=== PATIENT | female | born 1985 | race Caucasian/White ===

== ENCOUNTER → 2017-01-25 | Outpatient (CLI) | payer BC | LOC: MOB LAB 14:10 | PROVIDERS: ATTEND Nurse Practitioner Family | DX: E03.9 Hypothyroidism, unspecified (principal) | CPT/HCPCS: 36415; 84443 ==

== ENCOUNTER 2018-03-11 20:00 | Inpatient (IN) ==
[2018-03-11] MEDS ORDERED: ePHEDrine Inj 5 MG in Normal Saline Flush 1 ML IVP PRN (20:48)
[2018-03-11] MEDS ORDERED: LIDOCAINE HCL 2 % 10 ML JELLY URO-JECT TOPICAL PRN (20:48)
[2018-03-11] MEDS ORDERED: Metoclopramide Inj 10 MG/2 ML VIAL IV PRN (20:48)
[2018-03-11] MEDS ORDERED: ONDANSETRON 4 MG/2 ML VIAL IVP PRN (20:48)
[2018-03-11] MEDS ORDERED: CALCIUM CARBONATE 500 MG (TUMS) CHEWABLE TABLET PO PRN (20:48)
[2018-03-11] MEDS ORDERED: diphenhydrAMINE 50 MG/1 ML VIAL IVP PRN (20:48)
[2018-03-11] MEDS ORDERED: OXYTOCIN 10 UNIT/1 ML IM PRN (20:48)
[2018-03-11] MEDS ORDERED: LIDOCAINE W/ SODIUM BICARB 0.5 ML SYR SUBD PRN (20:48)
[2018-03-11] MEDS ORDERED: MISOPROSTOL 200 MCG TABLET RECTAL PRN (20:48)
[2018-03-11] MEDS ORDERED: Lidocaine 1% 10 MG/ML - 20 ML VIAL SUBCUT PRN (20:48)
[2018-03-11] MEDS ORDERED: CITRIC ACID/SODIUM CITRATE 30 ML CUP PO PRN (20:48)
[2018-03-11] MEDS ORDERED: Naloxone Inj 0.01 MG in Normal Saline Flush 1 ML IVP PRN (20:48)
[2018-03-11] MEDS ORDERED: BUTORPHANOL TARTRATE 2 MG/1 ML VIAL IVP PRN (20:48)
[2018-03-11] MEDS ORDERED: NALOXONE 0.4 MG/1 ML VIAL IVP PRN (20:48)
[2018-03-11] MEDS ORDERED: METHYLERGONOVINE MALEATE 0.2 MG/1 ML VIAL IM PRN (20:48)
[2018-03-11] MEDS ORDERED: Famotidine Inj 20 MG in Normal Saline Flush 10 ML IVP PRN ×4 (20:48)
[2018-03-11] MEDS ORDERED: CefOXitin Inj 2 GM in Sodium Chloride 0.9% 100 ML IV PRN (20:48)
[2018-03-11] MEDS ORDERED: Nalbuphine Inj 20 MG/ML Ampule IVP PRN (20:48)
[2018-03-11] MEDS ORDERED: TERBUTALINE SULFATE 1 MG/1 ML SDV SUBCUT PRN (20:48)
[2018-03-11] MEDS ORDERED: Phenylephrine Inj 50 MCG in Normal Saline Flush 0.5 ML IVP PRN (20:48)
[2018-03-11] MEDS ORDERED: Carboprost Inj 250 MCG/ML AMP IM PRN (20:48)
[2018-03-11] MEDS ORDERED: NORMAL SALINE 10 ML SYRINGE FLUSH IVP PRN (20:48)
[2018-03-11] MEDS ORDERED: fentaNYL Inj 100 MCG/2 ML VIAL IV PRN (20:48)
[2018-03-11] MEDS ORDERED: diphenhydrAMINE 25 MG CAPSULE PO PRN (21:00)
[2018-03-11] MEDS ORDERED: Oxytocin 20 Units + LR 20 UNIT/1,000 ML BAG IV SCH (21:00)
[2018-03-11 21:16] LABS: Hematocrit [HCT] 35.8 % (37.0-47.0); Hemoglobin [HGB] 12.2 g/dL (12.0-16.0); MEAN CORPUSCULAR HEMOGLOBIN 29.4 PG (27-31); MEAN CORPUSCULAR HGB CONC 34.1 g/dL (33-37); MEAN CORPUSCULAR VOLUME 86.3 FL (81-99); MEAN PLATELET VOLUME 10.8 FL (7.4-12.2); RED BLOOD COUNT 4.15 10^6/uL (4.20-5.40)
[2018-03-11] MEDS ORDERED: PENICILLIN G POTASSIUM 5,000,000 UNIT SDV IV ONE (21:21)
[2018-03-11] MEDS: Lactated Ringers-OB Dept 1,000 ML PRIMARY IV SCH (21:42)
[2018-03-11] MEDS ORDERED: Misoprostol Tab 100 MCG TAB VAGINAL ONE (22:18)
[2018-03-11] MEDS ORDERED: Misoprostol Tab 100 MCG TAB ONE (22:28)
[2018-03-12] MEDS ORDERED: PENICILLIN G POTASSIUM 5,000,000 UNIT SDV IV ONE ×2 (01:31→01:38)
--- NOTE | 2018-03-12 07:44 | OB.PROGRES ---
Interval History: The patient is a 32-year-old white female at 40 5/7 weeks who presented yesterday for cervical ripening for induction of labor. Patient was administered penicillin secondary to GBS positive and received 3 doses. She also received Cytotec. The patient decided that she wanted induction of labor now. She did not want induction of labor prior to this. The patient's has essentially been uncomplicated. She does have hypothyroidism and is on levothyroxine. Past medical history significant for hypothyroidism with last thyroid checked . Past surgical history significant for laparoscopic cholecystectomy and some breast surgery for a cyst No known drug allergies No tobacco, no alcohol, no drugs [employer] history with no history of STI's and no history of abnormal Pap smears. Last Pap smear was February 2016 and was normal with negative HPV. OB history with a miscarriage at 14 weeks gestation. Etiology is unknown. Patient is not sure if there ever was cardiac activity. Also one earlier SAB. Objective - Cervical Exam Cervical Exam: 3-4/70/-2 cephalic. Membranes gently swept secondary to patient already having received 3 doses of penicillin for GBS positive [place]: Contractions every 3 minutes. Patient can palpate somewhat. Some contractions are in couplets Heart Rate Interpretation Category: Category I - Labs CBC and BMP: 03/11/18 20:48 - Vital Signs Last Taken Vital Signs: Vital Signs - Last Taken Temperature 97.7 F 03/12/18 06:45 Pulse Rate 63 03/12/18 06:45 Respiratory Rate 14 03/12/18 06:45 Blood Pressure 118/74 03/12/18 06:45 Pulse Ox 98 03/12/18 06:45 - Additional Details Additional Details: Abdomen is soft and gravid Fundal height was 37 cm Assessment and Plan - Assessment / Plan Additional Assessment/Plan Details: Assessment: IUP 40-5/7 weeks with hypothyroidism. Patient has had essentially uneventful . She did not have significant weight gain during but she has been exercising and eating well. 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 Fundal heights have always matched. Group B strep positive Plan: Continue to observe closely Pitocin cervical ripening will continue today. Cytotec cannot be used secondary to contractions. Will start at 1 milliunit and increase.
[2018-03-12] MEDS ORDERED: Oxytocin 20 Units + LR 20 UNIT/1,000 ML BAG IV SCH (08:00)
[2018-03-12] MEDS ORDERED: Fent/Bupiv 2mcg/0.0625% Epid 250 ML ONE (10:46)
[2018-03-12] MEDS: Lactated Ringers-OB Dept 1,000 ML PRIMARY IV SCH ×2 (11:16→17:48)
--- NOTE | 2018-03-12 11:19 | CRNA.PROGR ---
Anesthesia Time - - Start date: 03/12/18 End date: 03/12/18 - Procedure/Recovery Time Anesthesia : Time In: 10:53 - Other Weight: 98.43 kg Height: 5 ft 6 in Body Mass Index (BMI): 35.0 Physical Status: P2 () Anesthesia Type: Epidural Obstetrics: Planned vaginal delivery w/ neuraxial labor anesthesia/analog
[2018-03-12] MEDS ORDERED: Nalbuphine Inj 20 MG/ML Ampule IVP PRN (11:26)
[2018-03-12] MEDS ORDERED: NALOXONE 0.4 MG/1 ML VIAL IVP PRN (11:26)
[2018-03-12] MEDS ORDERED: ePHEDrine Inj 5 MG in Normal Saline Flush 1 ML IVP PRN (11:26)
[2018-03-12] MEDS ORDERED: diphenhydrAMINE 50 MG/1 ML VIAL IVP PRN (11:26)
[2018-03-12] MEDS ORDERED: Naloxone Inj 0.01 MG in Normal Saline Flush 1 ML IVP PRN (11:26)
[2018-03-12] MEDS ORDERED: BUTORPHANOL TARTRATE 2 MG/1 ML VIAL IVP PRN (11:26)
[2018-03-12] MEDS ORDERED: Phenylephrine Inj 50 MCG in Normal Saline Flush 0.5 ML IVP PRN (11:26)
--- NOTE | 2018-03-12 11:26 | CRNA.PROCE ---
Central Neuraxis Block Placemt - - Safety Measures: Time Out Taken, Site Verified - - Type of Block: Epidural Reason for Block: Analgesia Moniters Used During Block: SPO2, NIBP Positioning: Sitting Skin Prep Used: ChloroPrep (Twice) Draped: Yes Skin Infiltration - Enter Amount Used in Comment Field: 1% Xylocaine (mL): Yes ( 1.5 ml) Introducer User: 18 Gauge ScoreStreamtead Spinal Needle Used: 18 Hustead 80 mm (Epidural space by feel. #25 120mm length spinal needel. 1 dural puncture. Cath threaded 3.5 cm, transient pressure parasthesia middle of back.) Local Anesthetic - Enter Amount Used in Comment Field: 1.5 % Xylocaine with Epinephrine 1:200,000 (mL): Yes ( 3.5 ml. Right leg warmer than left. Contractions much more tolerable.) Number of Centimeters Catheter Threaded: 3.5 Bioclusive Dressing Applied: Yes (skin prep under all adhesive) - - Additional Details: Bupivicaine 0.0625% infusion with 2 mcgs Fentanyl per ml infusion started post test dose. See orders. Pt reports much more comfortable. Anesthesia Time - Other Weight: 98.43 kg Height: 5 ft 6 in Body Mass Index (BMI): 35.0
[2018-03-12] MEDS ORDERED: fentaNYL 2 MCG/BUPIVACAINE 0.0625%/NS 0.9% 250 ML BAG EPIDURAL ONE (11:27)
--- NOTE | 2018-03-12 13:00 | OB.PROGRES ---
Interval History: The patient was very uncomfortable-pain harper- and requested an epidural. She is now comfortable. Cervical ripening continues. Objective - Cervical Exam Cervical Exam: /-2 and by cervical check there is significant posterior to the cervix. Perhaps signifying occiput posterior position of the baby. [place]: Contractions every 2-4 minutes on 3 milliunits of Pitocin Heart Rate Interpretation Category: Category I (Sleep pattern is present but then baby wakens and there are good accelerations.) - Labs CBC and BMP: 03/11/18 20:48 - Vital Signs Last Taken Vital Signs: Vital Signs - Last Taken Temperature 98 F 03/12/18 11:26 Pulse Rate 90 03/12/18 11:26 Respiratory Rate 16 03/12/18 11:26 Blood Pressure 140/69 03/12/18 11:26 Pulse Ox 100 03/12/18 11:26 Assessment and Plan - Assessment / Plan Additional Assessment/Plan Details: Assessment: IUP 40-5/7 weeks with cervical ripening with cervix with slight change. Membranes intact. GBS positive and penicillin every 4 hours being administered Pain control with epidural now secondary to patient very uncomfortable with cervical ripening contractions with low-dose Pitocin. The baby may be in the OP presentation. Plan: Continue Pitocin augmentation at 3 milliunits Pitocin but no more. Would decrease Pitocin to 2 milliunits of contractions every 2 minutes. [place] will continuously be adjusted to monitor contractions. Continue penicillin for GBS positive status.
--- NOTE | 2018-03-12 16:44 | OB.PROGRES ---
Interval History: The patient is comfortable with her epidural. SROM at 1535 hrs. and clear fluid per nurse. Objective - Cervical Exam Cervical Exam: 4-5/80/-2 cervix posterior. IUPC placed after discussing this with the patient. Contractions were not picking up well. IUPC placed at about 3:00 on a clock. Patient with a posterior placenta. Clear fluid with placing IUPC. Some serous fluid also while placing the IUPC. No evidence of uterine perforation. IUPC initially would not pass but with gentle manipulation and changing position on cervix, IUPC easily placed. [place]: Contractions every 2-4 minutes. 3 milliunits of Pitocin currently. Heart Rate Interpretation Category: Category I - Labs CBC and BMP: 03/11/18 20:48 - Vital Signs Last Taken Vital Signs: Vital Signs - Last Taken Temperature 98.2 F 03/12/18 15:35 Pulse Rate 73 03/12/18 15:35 Respiratory Rate 16 03/12/18 15:35 Blood Pressure 109/73 03/12/18 15:35 Pulse Ox 98 03/12/18 15:35 Assessment and Plan - Assessment / Plan Additional Assessment/Plan Details: Assessment: IUP 40-5/7 weeks with SROM with clear fluid. IUPC placed secondary to contractions not picking up well with external monitor GBS positive with 5 doses of penicillin currently. Currently, contractions not in couplet formation. With my exam, I could not determine head position. Plan: I would like to [place] units around 200 MVUs. After 20-30 minutes, and the use will be counted and Pitocin will be increased or decreased appropriately. Continue penicillin every 4 hours. I did discuss earlier with the patient that patients who undergo induction of labor due to have a slight increased risk for section. Indications for section were discussed with the patient and they have been discussed previously also. Patient expressed understanding.
--- NOTE | 2018-03-12 23:09 | OB.PROGRES ---
Interval History: The patient's epidural was recently bolused secondary to some pelvic pain. The patient is currently comfortable. Objective - Cervical Exam Cervical Exam: 5/95/-2 caput present. By exam, the head position may be in the occiput posterior position. [place]: Between 190 and 235 [place] units. Sometimes contractions space out but at other times they're every 2-3 minutes. The patient currently is on 8 milliunits of Pitocin Heart Rate Interpretation Category: Category I - Labs CBC and BMP: 03/11/18 20:48 - Vital Signs Last Taken Vital Signs: Vital Signs - Last Taken Temperature 98.1 F 03/12/18 19:00 Pulse Rate 81 03/12/18 22:30 Respiratory Rate 18 03/12/18 22:00 Blood Pressure 117/75 03/12/18 22:30 Pulse Ox 98 03/12/18 22:30 Assessment and Plan - Assessment / Plan Additional Assessment/Plan Details: Assessment: IUP 40-5/7 weeks GBS positive Adequate contractions by [place] units There has been some cervical change since I placed the IUPC at around 1630 hrs. or slightly before. However, there has not been significant cervical change except for with effacement. Cervix is dilated from 4 cm to 5 cm in that 6 hour time frame. Cervical ripening has been completed. Cervical effacement is 95% effaced. The cervix is very soft. By exam, the baby has some caput and may be in the occiput posterior position. I discussed with the patient the options of continuing the Pitocin and observing for cervical change. I also discussed that she may continue to dilate now that cervical ripening has taken place. However, the issue is whether or not the baby will descend into the pelvis with the caput already present and the occiput posterior presentation. 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 However, the patient's does have very broad shoulders and a fairly large head himself and this baby is a male . There may be similar characteristics with the baby and the . I explained to the patient that time will only tell whether or not a vaginal delivery may occur. We also discussed a primary section currently in the fact that the patient could decide this if she would prefer this since she has been very slow to dilate and ripen her cervix over the past 15 hours since this morning and 27 hours since she has been in the hospital receiving her first dose of Cytotec. We also discussed the risk of a section to include infection, bleeding , pain, bleeding so much the patient has hemorrhage, blood transfusion with associated risks, low risk of hysterectomy, damage to bowel, bladder, nerve, vessel, nicking the baby, blood clots to the legs or lungs, serious postoperative infection necessitating transfer to a higher level of care for necrotizing fasciitis which is not common and the low risk of . The above risks were discussed with the patient to inform the patient. Currently, the patient would like to continue to observe for cervical change and descent. The nurse who will be taking care of the patient throughout the night just checked the patient so that she can have a baseline cervical exam to evaluate for cervical change.
--- NOTE | 2018-03-12 23:32 | OB.PROGRES ---
Objective - Labs CBC and BMP: 03/11/18 20:48 - Vital Signs Last Taken Vital Signs: Vital Signs - Last Taken Temperature 98.5 F 03/12/18 23:00 Pulse Rate 74 03/12/18 23:15 Respiratory Rate 16 03/12/18 23:00 Blood Pressure 120/83 03/12/18 23:15 Pulse Ox 97 03/12/18 23:15 Assessment and Plan - Assessment / Plan Additional Assessment/Plan Details: I did not mention my previous note that her urine is blood-tinged which is most likely secondary to irritation from the head on the bladder. Additionally, the patient informed me that she would like to be checked 2 hours from the previous exam and if there is not a change with adequate labor that she would like a section then. The patient is hoping for cervical change but would like the above. The patient's nurses aware of this.
[2018-03-13] MEDS ORDERED: Fent/Bupiv 2mcg/0.0625% Epid 250 ML ONE (00:05)
[2018-03-13] MEDS: Lactated Ringers-OB Dept 1,000 ML PRIMARY IV SCH (00:11)
--- NOTE | 2018-03-13 01:43 | OB.PROGRES ---
Interval History: The patient is comfortable with epidural. Objective - Cervical Exam Cervical Exam: 5-6 cm /95/-2 with caput. Significant cervical edema anteriorly. The cervix stretches to 5-6 cm as it did 2 hours ago but now there is significant edema anteriorly and essentially circumferentially. [place]: [place] units up to 195 recently with Pitocin Heart Rate Interpretation Category: Category I - Labs CBC and BMP: 03/11/18 20:48 - Vital Signs Last Taken Vital Signs: Vital Signs - Last Taken Temperature 98.5 F 03/12/18 23:00 Pulse Rate 74 03/13/18 00:45 Respiratory Rate 16 03/13/18 00:45 Blood Pressure 93/58 03/13/18 00:45 Pulse Ox 95 03/13/18 00:45 Assessment and Plan - Assessment / Plan Additional Assessment/Plan Details: Assessment: IUP 40-6/7 weeks with induction of labor with cervical ripening with the head position thought to be occiput posterior and there has been very slow cervical ripening and then cervical dilation. The patient chose to have a repeat exam in 2 hours and there has been minimal change except for the fact that now there is significant cervical edema anteriorly and circumferentially. GBS positive with patient receiving penicillin Urine with significant blood tinged urine Plan: I discussed the above with the patient and her . The patient elects to have a section now for arrest of dilation with cervical edema. The patient is disappointed because she wanted a vaginal delivery but the patient stated that she understood that her cervix has changed very slowly and she is exhausted. The patient and her have discussed at length a section and they decided that that would be the best route for them. With the patient's cervix now edematous and no significant cervical change in the past 2 hours, I agree with the patient's decision for section. The risk of a was discussed with the patient in detail. The risks, but not limited to, of infection, bleeding, pain postoperatively, hemorrhage, blood transfusion with associated risks, damage to bowel, bladder, vessel, nerve , ureter, nicking the baby, blood clots to the legs or lungs, necrotizing fasciitis postoperatively necessitating transfer to a tertiary care hospital and the low risk of were discussed with the patient. Consent forms were signed. The OR crew was called. Pitocin was discontinued.
--- NOTE | 2018-03-13 01:49 | OB.OP.NOTE ---
Operative Report Surgeon: Stanley Wax Ball Knock Out Worker: Jorge Pugh MD Anesthesia Type: Regional (The patient had epidural during cervical ripening and labor. Spinal with Duramorph was administered for section.) Anesthesia Provider: Michelle Harvey CRNA Surgery Date: 03/13/18 Preoperative Diagnosis: IUP 40-6/7 weeks, hypothyroidism, arrest of dilation with cervical edema,. The patient would like a section for the arrest of dilation with significant cervical edema. head persistent occiput posterior. Group B strep positive Postoperative Diagnosis: Same Procedure: Primary low transverse section Estimated Blood Loss (mL): 600 Fluids: Mefoxin 2 g IV was given prior to the surgery. Azithromycin 500 mg IV was given after cord clamp. 1600 mL of LR and Pitocin. 125 mL of urine which was serosanguineous Complications: None apparent Findings at Surgery: Findings were a male with Apgars 9 and 9 Weight was 8 lbs. 10 oz. ABG showed a pH of 7.378, PCO2 of 36.2, HCO3 of 21.4, base excess of -4 Normal uterus, fallopian tubes, ovaries bilaterally Indications for the Procedure: The patient is a 32-year-old at 40-6/7 weeks who underwent induction of labor with cervical ripening with Cytotec 1 dose and Pitocin augmentation of contractions. The patient's cervix changed from 1-2 cm to 3 cm and 60% over 6 hours. Then since 0715 hrs. on 03/12/2018 the patient's cervix continued cervical ripening and most recently was 5-6 cm/c/-2 with caput and now cervical edema especially anteriorly but circumferentially. With the diagnosis of arrest of dilation and persistent occiput posterior, the patient would like a section. Description of Procedure: The patient was brought to the operating room after the risks, benefits, alternatives and indication of a section were discussed with the patient in detail. Consent forms had been signed. The patient had previously undergone an epidural for pain control during cervical ripening. The epidural was dosed and Duramorph was given. A Brown catheter had previously been placed secondary to the patient receiving an epidural. The patient was prepped and draped sterilely in the dorsal supine position with a leftward tilt. A Pfannenstiel skin incision was made about 2 cm superior to the symphysis pubis. A Bovie was then used for the subcutaneous tissue and the fascia was nicked in the midline bilaterally. The fascia incision was then extended laterally retracting the fascia with the Yankauer and using the Bovie. Cokers were placed on the superior aspect of the fascia on either side of the midline and the rectus muscles were dissected off of the fascia bluntly and with the Bovie. Cokers were then removed and placed on the inferior aspect of the fascia on either side of the midline and the rectus muscles were dissected off the fascia bluntly and with the Bovie. The peritoneum was then entered bluntly and stretched. The Vin retractor was placed after ensuring there were not adhesions between the uterus and anterior abdominal wall. A low transverse lower uterine segment incision was then made. The low transverse uterine segment incision was continued down to membranes and clear fluid erupted. The uterine incision was then extended with traction and with bandage forceps on the patient's left side about 1 cm. The baby was found to be in the OP presentation. I placed my hand intrauterine along the baby's for head and then to the vertex of the head. I then gently delivered the head through the uterine incision. The mouth and nose were bulb suctioned. The shoulders were delivered and then the baby was delivered. Delayed cord clamping of about 35-40 seconds was allowed for. The mouth and nose were bulb suctioned. The cord was then clamped and cut. The baby was handed off to the waiting nurses and Dr. Mendez. A section of cord was obtained for cord gases and then cord blood was obtained. The placenta was then delivered spontaneously with traction. The uterus was then delivered through the transabdominal incision and exteriorized. The uterus was then cleared of any clot and debris 3 using a lap sponge. The uterine incision was then closed with 0 Vicryl suture in a running locking fashion. Another 0 Vicryl suture was then used to imbricate the first layer. There was good hemostasis. Posterior to the uterus was irrigated. The uterus was examined and the fallopian tubes and ovaries appeared normal. The uterus was then placed back into the abdomen. The uterine incision was then examined again and there was good hemostasis. The right gutter was irrigated and then suctioned. The left gutter was then irrigated and suctioned. Uterine incision was examined again and there was good hemostasis. The peritoneum was then closed with 3-0 Vicryl suture in a running fashion. Subfascially was then irrigated. There was good hemostasis. The fascia was then closed with 0 Vicryl suture starting on the left angle and going to just past the midline. Another 0 Vicryl suture started at the right angle of the fascia and the fascia was then closed in a running fashion to past the midline. The 2 tied sutures were then tied together. The subcutaneous tissue was then irrigated and a few areas were bovied for hemostasis. The subcutaneous tissue was then closed with 3-0 Vicryl suture. Stratafix 3-0 suture was then used to close the skin in a subcuticular fashion. Steri-Strips were then used to continue the approximation of the skin. Skin prep was used for the adhesive for the Steri-Strips. Sponge lap and needle counts were correct 2. Radiofrequency wand was then used to ensure that there were no retained instruments or lap sponges. The RF was negative. Silverlon dressing was placed over the incision and then an ABD pad and then paper tape. The uterus was expressed of all clot and debris. There was minimal clot. Some dark blood. No bright red bleeding. The patient was then brought to her recovery room to recover. Plan: The patient will be admitted to the room and observed for several days.
[2018-03-13] MEDS ORDERED: ePHEDrine Inj 50 MG/ML AMP ONE ×2 (02:04)
[2018-03-13] MEDS ORDERED: Sodium Chloride 0.9% vial 10 ML ONE ×2 (02:04→02:06)
[2018-03-13] MEDS ORDERED: PHENYLEPHRINE 10,000 MCG/1 ML VIAL ONE (02:04)
[2018-03-13] MEDS ORDERED: Sodium Chloride 0.9% 200 ML IV ONE (02:06)
[2018-03-13] MEDS ORDERED: MORPHINE SULFATE/PF 10 MG/10 ML AMPULE ONE (02:11)
[2018-03-13] MEDS ORDERED: AZITHROMYCIN 500 MG VIAL IV ONE (02:17)
[2018-03-13] MEDS ORDERED: Sodium Chloride 0.9% 100 ML IV ONE (02:18)
[2018-03-13] MEDS ORDERED: Oxytocin 20 Units + LR 20 UNIT/1,000 ML BAG IV ONE (02:37)
[2018-03-13] MEDS ORDERED: ONDANSETRON 4 MG/2 ML VIAL ONE (02:54)
[2018-03-13] MEDS ORDERED: KETOROLAC 30 MG/1 ML VIAL ONE (04:01)
--- NOTE | 2018-03-13 04:13 | CRNA.PROGR ---
Anesthesia Time - - Start date: 03/12/17 End date: 03/13/17 - Procedure/Recovery Time Anesthesia : Time In: 10:55 Anesthesia : Time Out: 01:30 Anesthesia : Total Time: 875 - Total Anesthesia Time Total Anesthesia Time (minutes): 875 - Other Weight: 98.43 kg Height: 5 ft 6 in Body Mass Index (BMI): 35.0 Physical Status: P2 () Obstetrics: Planned vaginal delivery w/ neuraxial labor anesthesia/analog
--- NOTE | 2018-03-13 04:14 | CRNA.PROGR ---
Anesthesia Time - - Start date: 03/13/18 End date: 03/13/18 - Procedure/Recovery Time Anesthesia : Time In: 02:21 Anesthesia : Time Out: 03:45 Anesthesia : Total Time: 84 - Total Anesthesia Time Total Anesthesia Time (minutes): 84 - Other Weight: 98.43 kg Height: 5 ft 6 in Body Mass Index (BMI): 35.0 Physical Status: P2 () Anesthesia Type: Spinal Block Obstetrics: C/S anesthesia only
--- NOTE | 2018-03-13 04:16 | CRNA.PROCE ---
Central Neuraxis Block Placemt - - Safety Measures: Time Out Taken, Site Verified - - Type of Block: Subarachnoid Reason for Block: Surgical Moniters Used During Block: EKG, SPO2, NIBP Positioning: Sitting Skin Prep Used: ChloroPrep Skin Infiltration - Enter Amount Used in Comment Field: 1% Xylocaine (mL): Yes ( 1.5) Spinal Needle Used: 22 Yeny 120 mm Local Anesthetic - Enter Amount Used in Comment Field: 0.75 % Bupivacaine with Dextrose (ml): Yes (1.2 ml) Additive Used - Enter Amount Used in Comment Field: Preservative Free Morphine ( mg): Yes (0.15) Bioclusive Dressing Applied: No - - Additional Details: SAB for . no problems even with epidural running up till last minute. Anesthesia Time - Other Weight: 98.43 kg Height: 5 ft 6 in Body Mass Index (BMI): 35.0
--- NOTE | 2018-03-13 04:17 | CRNA.PROGR ---
Post Anesthesia Phase II - Post Anesthesia Phase II Patient Stable and Discharged To: OB Care Assumed By Surgeon: Tristan Angel MD Temperature: 97.8 F Pulse Rate: 70 Respiratory Rate: 16 Blood Pressure: 105/73 Pulse Ox: 98 Total Ethan Score at Discharge: 9 Post Anesthesia Discharge Criteria Met: Yes
[2018-03-13] MEDS ORDERED: Naloxone Inj 0.01 MG, Sodium Chloride 0.9% vial 1 ML IVP PRN ×2 (04:34)
[2018-03-13] MEDS ORDERED: Nalbuphine Inj 20 MG/ML Ampule IVP PRN (04:34)
[2018-03-13] MEDS ORDERED: Famotidine Inj 20 MG in Normal Saline Flush 10 ML IVP PRN (04:34)
[2018-03-13] MEDS ORDERED: D5-LR 1,000 ML PRIMARY IV SCH (04:34)
[2018-03-13] MEDS ORDERED: Oxytocin 20 Units + LR 20 UNIT/1,000 ML BAG IV SCH (04:34)
[2018-03-13] MEDS ORDERED: DIPH,PERTUSS,TET(ADACEL) VAC/PF 0.5 ML (Tdap) IM ONE (04:34)
[2018-03-13] MEDS ORDERED: diphenhydrAMINE 50 MG/1 ML VIAL IV PRN (04:34)
[2018-03-13] MEDS ORDERED: diphenhydrAMINE 25 MG CAPSULE PO PRN (04:34)
[2018-03-13] MEDS ORDERED: ONDANSETRON 4 MG/2 ML VIAL IVP PRN (04:34)
[2018-03-13] MEDS ORDERED: LANOLIN HPA 40 GM TUBE TOPICAL PRN (04:34)
[2018-03-13] MEDS ORDERED: CALCIUM CARBONATE 500 MG (TUMS) CHEWABLE TABLET PO PRN (04:34)
[2018-03-13] MEDS: oxyCODONE-ACETAMINOPHEN 5-325 TAB PO PRN ×3 (05:10→21:20)
[2018-03-13] MEDS: KETOROLAC 15 MG/1 ML VIAL IVP SCH ×4 (06:44→23:04)
[2018-03-13] MEDS: NORMAL SALINE 10 ML SYRINGE FLUSH IVP PRN ×2 (11:25→17:32)
[2018-03-13] MEDS ORDERED: DOCUSATE 100 MG CAPSULE PO ONE (18:49)
[2018-03-14 05:15] LABS: Hematocrit [HCT] 34.1 % (37.0-47.0); Hemoglobin [HGB] 11.2 g/dL (12.0-16.0); MEAN CORPUSCULAR HEMOGLOBIN 29.2 PG (27-31); MEAN CORPUSCULAR HGB CONC 32.8 g/dL (33-37); MEAN CORPUSCULAR VOLUME 88.8 FL (81-99); MEAN PLATELET VOLUME 10.3 FL (7.4-12.2); RED BLOOD COUNT 3.84 10^6/uL (4.20-5.40)
[2018-03-14] MEDS: oxyCODONE-ACETAMINOPHEN 5-325 TAB PO PRN ×3 (07:04→19:11)
[2018-03-14 07:11] VITALS: RESP 16
[2018-03-14] MEDS: DOCUSATE 100 MG CAPSULE PO SCH ×2 (08:35→21:04)
[2018-03-14] MEDS: Prenatal Multivitamin Tab 1 TAB TAB PO SCH (08:35)
--- NOTE | 2018-03-14 11:08 | OB.PROGRES ---
Subjective Post Op Day: 1 Pain Management: PO Brown Catheter: No Flatus: Yes Diet: Regular Feeding Method: Exculsively Ambulating: Yes Concerns / Additional Information: The patient states that she is doing well. Objective - General General Appearance: POSITIVE: No Acute Distress, Cooperative - Cardiovacular Cardiovascular Exam: POSITIVE: RRR Edema: +1 Pedal Edema Extremities: Negative Jose's - Bilaterally - Respiratory Respiratory Exam: POSITIVE: Clear to Auscultation - Bilaterally Assesstment / Plan Assessment / Plan: Assessment: Postoperative day 1 status post primary low transverse section for arrest of dilation. The patient is doing well. Her H&H is 11 and 34. The patient has been afebrile. Blood pressures have been good. Plan: Continue care Ambulate at least 4 times today Continue to observe Currently, no iron secondary to good H&H.
[2018-03-14] MEDS: IBUPROFEN 800 MG TABLET PO PRN ×2 (12:36→19:11)
[2018-03-15] MEDS: oxyCODONE-ACETAMINOPHEN 5-325 TAB PO PRN ×3 (01:38→13:40)
[2018-03-15] MEDS: IBUPROFEN 800 MG TABLET PO PRN ×2 (05:11→13:40)
[2018-03-15 05:14] VITALS: O2SAT 99
[2018-03-15 05:40] VITALS: BP 108/66
[2018-03-15] MEDS: DOCUSATE 100 MG CAPSULE PO SCH (09:21)
[2018-03-15] MEDS: Prenatal Multivitamin Tab 1 TAB TAB PO SCH (09:21)
--- NOTE | 2018-03-15 13:34 | OB.PROGRES ---
Subjective Post Op Day: 2 Pain Management: PO Brown Catheter: No Flatus: Yes Diet: Regular Feeding Method: Exculsively Ambulating: Yes Concerns / Additional Information: Patient was like to go home. She is taking Percocet regularly. Objective - General General Appearance: POSITIVE: No Acute Distress, Cooperative - Cardiovacular Cardiovascular Exam: POSITIVE: RRR Edema: +1 Pedal Edema Extremities: Negative Jose's - Bilaterally - Respiratory Respiratory Exam: POSITIVE: Clear to Auscultation - Bilaterally - Fundus/Lochia/Perineum Uterus Consistency: Firm (Abdomen soft and appropriately tender. No guarding or rebound. Incision is clean and dry. New Steri-Strips were placed into Silverlon dressing was placed today.) Assesstment / Plan Assessment / Plan: Assessment: Postoperative day #2 status post primary low transverse section for arrest of dilation. Patient doing very well. Patient's postop H&H was 11 and 34. Patient desires to go home today. Plan: Discharge home today Usual precautions Follow-up in one week for incision check Oxycodone/Tylenol 5/325 one to 2 tablets by mouth every 6 hours when necessary pain #30 and no refills Ibuprofen 800 mg 1 tablet by mouth 3 times a day with food or milk for 5 days then 3 times a day as needed Colace 100 mg capsule 1 capsule by mouth daily to twice a day when necessary constipation If the patient Silverlon dressing is not adhering, the entire dressing should be removed Go to the emergency room for fever, wound drainage, signs of infection Post appointment at 6 weeks
[2018-03-15 13:41] VITALS: TEMP 98.3
--- NOTE | 2018-03-15 13:47 | DCSUMMARY ---
Hospitalization Summary Admit Date: 03/11/18 Discharge Date: 03/15/18 Primary Diagnosis:: intrauterine at 40-6/7 weeks at delivery Secondary Diagnosis:: Arrest of dilation Positive group B strep Primary Surgery and Date: 03/13/2018. Primary low transverse section Delivery Type: Hospital Course: Patient was admitted for induction of labor with cervical ripening. Patient's cervix progressed to 5-6 cm/95% effaced/-2 with caput. Baby's head was in the persistent occiput posterior position. Cervix was edematous. Consent form for primary section was completed. The patient underwent a primary low transverse section. Please see my operative report. , the patient has done very well. The patient will be discharged today. / Postop Complications: No apparent complications Complications: None apparent Exam - Vitals Vital Signs: Vital Signs Temperature 98.3 F Temperature Source Oral Pulse Rate [Pulse Oximeter] 68 Pulse Rate [Pulse Oximeter 74 Right Radial] Pulse Rate 68 Respiratory Rate [Lower 18 Abdomen] Respiratory Rate 16 Blood Pressure [Left Arm] 108/66 Blood Pressure [Right Arm] 115/78 Blood Pressure 113/68 Pulse Ox 99 Oxygen Flow Rate [Lower 0 Abdomen] Oxygen Flow Rate 1 Oxygen Delivery Method Room Air Height 5 ft 6 in Weight 217 lb
== END 2018-03-15 16:15 | disposition home or self-care (01) | DRG 766 ==
LOC: OBIP 20:48 → MED/SURG 03-13 04:24 → OBIP 03-13 04:25
PROVIDERS: ADMIT Obstetrics & Gynecology; ATTEND Obstetrics & Gynecology